=== PATIENT | male | born 1960 | race Caucasian/White ===

== ENCOUNTER 2017-12-01 08:16 | Outpatient (REF) | payer BC, SELFPAY ==
[2017-12-01 13:21] LABS: Anion Gap 8.4 mmol/L (3-11); BUN 15 mg/dL (7-18); CO2 27.6 mmol/L (21.0-32.0); CREATININE 0.93 mg/dL (0.70-1.30); Chloride 103 mmol/L (98-107); Cholesterol 176 mg/dL (50-200); Glucose 95 mg/dL (70-100); HDL Cholesterol 48 mg/dL (40-60); LDL CHOLESTEROL 108 mg/dL (<100); Potassium 3.9 mmol/L (3.5-5.1); Sodium 139 mmol/L (136-145); Triglyceride 180 mg/dL (30-150)
[2017-12-02 10:08] LABS: Hepatitis C Ab w Rflx HCV PCR Negative (NEGAT)
== END 2017-12-01 08:36 ==
LOC: NCHCN 08:16
PROVIDERS: PCP Family Medicine; Visit Provider Family Medicine
DX: Z00.00 Encounter for general adult medical examination without abnormal findings (principal); I10 Essential (primary) hypertension; Z11.59 Encounter for screening for other viral diseases
CPT/HCPCS: 80048; 80061; 83721; 86803

== ENCOUNTER 2019-02-16 20:44 | Emergency (ER) | payer BC, SELFPAY ==
[2019-02-16 20:49] VITALS: BP 164/84; PULSE 87; TEMP 37.2; O2SAT 96
--- NOTE | 2019-02-16 20:52 | W.ED.GENAD ---
Discharge Plan Disposition Patient Disposition: HOME Discharge Details Chief Complaint: RashLesion Clinical Impression: Rash, Contact dermatitis Primary Care Provider: Sandip Vincent ED Provider: Freddy Cruz Home Meds and New Rx's Prescriptions: No Action chlorthalidone 25 MG tablet 25 mg PO DAILY RF: 0 zinc 50 MG tablet 50 mg PO DAILY RF: 0 multivitamin 1 EACH capsule 1 tab PO DAILY RF: 0 itlqmwzomzr-kpxresizy-dxw C-Mn 1 EACH capsule 1 tab PO DAILY RF: 0 Discharge Instructions Instructions: Dermatitis (ED) Additional Instructions: At this time the rash in your leg appears to be contact dermatitis. Please apply the cream 3 times daily. Do not put any adhesive on it. Try to keep it open, or covered with a nonadhesive gauze. If you notice spreading of the redness, warmth, firmness, please return immediately. If you notice any worsening of your symptoms, or any new symptoms such as vomiting, diarrhea, fever, chills, shortness of breath, chest pain, numbness, weakness, or fainting , please return immediately to the emergency department for reevaluation. Please follow up with your primary care provider as soon as possible for reassessment and reevaluation. As always, it was a pleasure participating in your medical care today. Referrals: Sandip Vincent [Primary Care Provider] - Medical Decision Making This is a pleasant 4-year-old male who presents for a mild rash on his right calf. It started as a small scrape, he subsequently put a Band-Aid on it, after leaving the Band-Aid on for around a week he noticed a significant red rash underneath with a Band-Aid was. Is mild cobblestoning, no vesicles, no evidence of cellulitis, no evidence of associated oral lesions, no history of significant allergic reaction. No red flags of fever or chills. Signs and symptoms are clinically inconsistent with cellulitis. This time they are clinically consistent with contact dermatitis. We will prescribe a hydrocortisone 2.5% ointment, recommend application 3 times daily, we circled the lesion, and recommend close follow-up. Discussed red flags which return. We will give the medication here in the ED for him to take home, given that it is the evening, the weekend, and the holiday season. I have extensively reviewed the treatment plan and discharge instructions with the patient and their family. I have addressed all patient concerns at this time. The patient and family was made aware of what symptoms to monitor for that would warrant a return to the emergency department. Discussed the plan with the patient and family, they demonstrate verbal understanding and agreement with our assessment and plan at this time. HPI General Date/Time Provider Initiated Documentation: 02/16/19 20:45. HPI Narrative: This is a pleasant 58-year-old male with no significant past medical history who presents today for evaluation of rash on his right calf. Rashes been present for the last 5 days. It started with a small abrasion, he placed a Band-Aid on it, with neomycin cream, and since Band-Aid application he remove the bandage today for the first time and noticed a significant rash under where the bandage was. He describes it is notably itchy. He denies fever, chills, antiepileptic medication, new medication change, oral symptoms, dysuria or other complaints. He he states that he has had a mild reaction like this in the past. He denies any red flags of fever or chills. He has no other complaints at this time. No other modifying factors. Related Data Home Medications Medication Instructions Recorded Confirmed chlorthalidone 25 mg PO DAILY tab-cap 01/16/15 02/16/19 hkvoblicrss-bvkhfdnnn-rbo C-Mn 1 tab PO DAILY 04/11/15 02/16/19 multivitamin 1 tab PO DAILY 04/11/15 02/16/19 zinc 50 mg PO DAILY 04/11/15 02/16/19 Allergies Allergy/AdvReac Type Severity Reaction Status Date / Time No Known Allergies Allergy Unverified 02/16/19 20:52 General Stated Complaint: RashLesion MARIAN: 4 Review of Systems All systems reviewed & are unremarkable except as noted in HPI and below [facility] Medical History (Updated 04/11/15 @ 07:24 by Paresh Fountain DO) Erectile dysfunction Hypertension, essential Surgical History (Updated 01/11/18 @ 14:36 by [employer] AR) Colonoscopy - MAC Tonsillectomy and adenoidectomy Family History Father Personal history of malignant neoplasm colon cancer, diagnosed at 80 Social History Smoking/Tobacco Use Status: Current-Occasional Tobacco Type: cigars Alcohol Intake: current Alcohol Intake frequency: a few times a month Drug use: Never Substance use type: does not use Do you feel safe at home: Yes Do you feel safe in your relationship?: Yes Exam Narrative Exam Narrative: 1.Const: Well-nourished, Well-developed, appearing stated age 2.Eyes: PERRL, no conjunctival injection, and symmetrical lids. 3.ENT: Atraumatic external nose and ears. Moist MM. Neck: Symmetric, trachea midline, No thyromegaly. 4.CVS: +S1/S2, No murmurs or gallops. Peripheral pulses 2+ and equal in all extremities. Brisk capillary refill in all extremities. 5.RESP: Unlabored respiratory effort. Clear to auscultation bilaterally. No wheezes rales or rhonchi 6.GI: Soft, Nontender/Nondistended, No hepatosplenomegaly. No guarding or rebound. 7.MSK: Normocephalic/Atraumatic, Extremities w/o deformity or ttp No cyanosis or clubbing, Normal movement of all extremities 8.Skin: Patient's right calf demonstrates a small cobblestone-like rash mildly erythematous, easily blanchable. It is roughly 6 cm in length, and 4 cm in width. No weeping, no vesicles. Negative Nikolsky sign. No large vesicles or bulla. No palpable purpura. No oral lesions. No mucosal lesions. No evidence of severe cellulitis. No evidence of vaccine preventable rash. 9.Neuro: gopherman II-XII grossly intact. Sensation grossly intact, no focal neurologic deficits. 10.Psych: (AAO) x3. Appropriate mood and affect Course Vital Signs Vital signs: Vital Signs Temperature 37.2 C 02/16/19 20:49 Pulse 87 02/16/19 20:49 Blood Pressure 164/84 H 02/16/19 20:49 Pulse Oximetry 96 02/16/19 20:49 Temperature 37.2 C 02/16/19 20:49 Temperature Source Skin 02/16/19 20:49 Pulse 87 02/16/19 20:49 Blood Pressure 164/84 H 02/16/19 20:49 Blood Pressure Position Sitting 02/16/19 20:49 Pulse Oximetry 96 02/16/19 20:49 Oxygen Delivery Method Room Air 02/16/19 20:49 Oxygen Flow Rate 0 02/16/19 20:49 Comment 02/16/19 20:49
== END 2019-02-16 21:00 | disposition home or self-care (01) ==
PROVIDERS: Emergency Provider Student in an Organized Health Care Education/Training Program; PCP Family Medicine
DX: L25.9 Unspecified contact dermatitis, unspecified cause (principal)
CPT/HCPCS: 99283

== ENCOUNTER 2019-04-26 12:48 | Outpatient (REF) | payer BC, SELFPAY ==
[2019-04-26 14:42] LABS: Anion Gap 10.1 mmol/L (3-11); BUN 19 mg/dL (7-18); CO2 25.9 mmol/L (21.0-32.0); CREATININE 0.78 mg/dL (0.70-1.30); Calcium 9.4 mg/dL (8.5-10.1); Chloride 100 mmol/L (98-107); Glucose 89 mg/dL (74-106); Potassium 4.3 mmol/L (3.5-5.1); Sodium 136 mmol/L (136-145)
[2019-04-27 09:16] LABS: PSA, Screening 0.4 ng/mL (0.0-4.5)
== END 2019-04-26 13:08 ==
LOC: NCHCN 12:48
PROVIDERS: PCP Family Medicine; Visit Provider Family Medicine
DX: Z00.00 Encounter for general adult medical examination without abnormal findings (principal); I10 Essential (primary) hypertension; Z12.5 Encounter for screening for malignant neoplasm of prostate
CPT/HCPCS: 80048; 84153

== ENCOUNTER 2019-09-03 17:09 | Outpatient (REF) | payer BC, SELFPAY ==
[2019-09-04 03:02] LABS: COVID-19 RT-PCR UVMMC Result Negative (Negative)
== END 2019-09-03 17:29 ==
LOC: NCHCN 17:09
PROVIDERS: PCP Family Medicine; Visit Provider Nurse Practitioner Family
DX: J06.9 Acute upper respiratory infection, unspecified (principal)
CPT/HCPCS: U0003

== ENCOUNTER 2020-12-31 17:15 | Outpatient (REF) | payer OTHER, SELFPAY ==
[2020-12-31 22:24] LABS: HCT 44.3 % (40.0-50.0); HGB 14.6 g/dL (13.5-17.5); MCH 29.7 pg (27.0-33.0); MPV 9.5 fL (8.0-11.0); Platelet Count 289 10^3/uL (130-400); RBC 4.92 10^6/uL (4.36-5.78); RDW-SD 39.7 fL
[2021-01-01 06:55] LABS: ALT 40 U/L (16-63); AST 24 U/L (15-37); Albumin 4.5 g/dL (3.4-5.0); Alkaline Phosphatase 63 U/L (46-116); Anion Gap 8.9 mmol/L (3-11); BUN 12 mg/dL (7-18); Bilirubin, Total 0.8 mg/dL (0.2-1.0); CO2 29.1 mmol/L (21.0-32.0); Calcium 9.4 mg/dL (8.5-10.1); Chloride 101 mmol/L (98-107); Glucose 92 mg/dL (74-106); Potassium 4.3 mmol/L (3.5-5.1); Sodium 139 mmol/L (136-145); Total Protein 7.7 g/dL (6.4-8.2)
[2021-01-01 19:41] LABS: PSA, Screening 0.4 ng/mL (0.0-4.5)
== END 2021-01-01 07:35 | disposition home or self-care (01) ==
LOC: NCHCN 17:15
PROVIDERS: PCP Family Medicine; Visit Provider Family Medicine
DX: I10 Essential (primary) hypertension (principal); F10.99 Alcohol use, unspecified with unspecified alcohol-induced disorder; R39.9 Unspecified symptoms and signs involving the genitourinary system; Z00.00 Encounter for general adult medical examination without abnormal findings
CPT/HCPCS: 80053; 84153; 85027

== ENCOUNTER 2021-01-30 08:36 | Outpatient (REF) | payer OTHER, SELFPAY ==
[2021-02-02 14:58] LABS: Pancreatic Elastase, F >500 mcg/g
== END 2021-01-30 08:37 | disposition home or self-care (01) ==
LOC: NCHCN 08:36
PROVIDERS: PCP Family Medicine; Visit Provider Family Medicine
DX: F10.99 Alcohol use, unspecified with unspecified alcohol-induced disorder (principal)
CPT/HCPCS: 82656

== ENCOUNTER 2021-05-28 16:35 | Outpatient (REF) | payer OTHER, SELFPAY ==
[2021-05-28 15:11] LABS: Crystals (BF) No Crystals seen
[2021-05-28 15:12] LABS: Clarity Clear; Nucleated Cells 4115 uL (0)
[2021-05-28 15:19] LABS: Mononuclear Cells 52 %; Polynuclear Cells 48 %
== END 2021-05-28 16:36 | disposition home or self-care (01) ==
LOC: LBN 16:35
PROVIDERS: PCP Family Medicine; Visit Provider Physician Assistant Medical
DX: M25.462 Effusion, left knee (principal)
CPT/HCPCS: 87070; 87205; 89051; 89060

== ENCOUNTER 2022-02-15 18:38 | Outpatient (REF) | payer OTHER, SELFPAY ==
[2022-02-15 20:34] LABS: Anion Gap 8.3 mmol/L (3-11); BUN 12 mg/dL (7-18); CO2 28.7 mmol/L (21.0-32.0); CREATININE 0.9 mg/dL (0.70-1.30); Calcium 9.4 mg/dL (8.5-10.1); Calculated LDL 94 mg/dL (<100); Chloride 100 mmol/L (98-107); Cholesterol 211 mg/dL (<200); Estimated GFR 95.97 (mL/min/1.73m2); Glucose 89 mg/dL (74-106); HDL Cholesterol 68 mg/dL (40-60); Potassium 3.8 mmol/L (3.5-5.1); Sodium 137 mmol/L (136-145); Triglyceride 247 mg/dL (<150)
== END 2022-02-15 18:39 | disposition home or self-care (01) ==
LOC: NCHCN 18:38
PROVIDERS: PCP Family Medicine; Visit Provider Family Medicine
DX: Z00.00 Encounter for general adult medical examination without abnormal findings (principal); I10 Essential (primary) hypertension; Z13.220 Encounter for screening for lipoid disorders
CPT/HCPCS: 80048; 80061

== ENCOUNTER 2023-02-21 21:04 | Outpatient (REF) | payer BC, SELFPAY ==
[2023-02-21 19:08] LABS: Calculated LDL 70 mg/dL (<100); Cholesterol 165 mg/dL (<200); HDL Cholesterol 59 mg/dL (40-60); Triglyceride 184 mg/dL (<150)
[2023-02-23 11:55] LABS: HIV-1/2 Ag & Ab Screen Negative (Negative)
== END 2023-02-21 21:05 | disposition home or self-care (01) ==
LOC: NCHCN 21:04
PROVIDERS: PCP Family Medicine; Visit Provider Family Medicine
DX: Z00.00 Encounter for general adult medical examination without abnormal findings (principal)
CPT/HCPCS: 80061; 87389

== ENCOUNTER 2023-10-05 17:02 | Outpatient (REF) | payer MEDICARE, SELFPAY ==
[2023-10-05 20:27] LABS: ALT 40 U/L (16-63); AST 24 U/L (15-37); Albumin 4.2 g/dL (3.4-5.0); Alkaline Phosphatase 58 U/L (46-116); Anion Gap 8.8 mmol/L (3-11); BUN 13 mg/dL (7-18); Bilirubin, Total 1.14 mg/dL (0.2-1.0); CO2 26.2 mmol/L (21.0-32.0); CREATININE 0.9 mg/dL (0.70-1.30); Calcium 9.4 mg/dL (8.5-10.1); Chloride 102 mmol/L (98-107); Estimated GFR 94.78 (mL/min/1.73m2); Glucose 94 mg/dL (74-106); Potassium 3.9 mmol/L (3.5-5.1); Sodium 137 mmol/L (136-145); Total Protein 7.5 g/dL (6.4-8.2)
== END 2023-10-05 17:03 | disposition home or self-care (01) ==
LOC: NCHCN 17:02
PROVIDERS: PCP Family Medicine; Visit Provider Nurse Practitioner Family
DX: I10 Essential (primary) hypertension (principal)
CPT/HCPCS: 80053

== ENCOUNTER 2024-04-19 17:43 | Outpatient (REF) | payer MEDICARE, OTHER, SELFPAY ==
[2024-04-19 18:56] LABS: HGB 14.4 g/dL (13.5-17.5); MCHC 34.3 % (32.0-36.0); MCV 88 fL (80-95); MPV 9.8 fL (8.0-11.0); Platelet Count 261 10^3/uL (130-400); RDW 11.8 % (11.8-14.1); RDW-SD 37.5 fL; WBC 9.59 10^3/uL (4.4-10.8)
[2024-04-19 19:19] LABS: ALT 52 U/L (16-63); AST 29 U/L (15-37); Albumin 3.8 g/dL (3.4-5.0); Alkaline Phosphatase 61 U/L (46-116); BUN 17 mg/dL (7-18); Bilirubin, Total 0.74 mg/dL (0.2-1.0); CREATININE 0.9 mg/dL (0.70-1.30); Calcium 9.2 mg/dL (8.5-10.1); Chloride 105 mmol/L (98-107); Estimated GFR 94.78 (mL/min/1.73m2); Glucose 89 mg/dL (74-106); Magnesium 1.9 mg/dL (1.8-2.4); Potassium 4.1 mmol/L (3.5-5.1); Sodium 143 mmol/L (136-145); TSH 1.02 uIU/mL (0.36-3.74); Total Protein 6.8 g/dL (6.4-8.2)
[2024-04-19 19:30] LABS: Hemoglobin A1C 5.2 % (<5.7)
[2024-04-20 19:01] LABS: PSA, Screening 0.8 ng/mL (<=4.5)
== END 2024-04-19 17:44 | disposition home or self-care (01) ==
LOC: NCHCN 17:43
PROVIDERS: PCP Family Medicine; Visit Provider Nurse Practitioner Family
DX: Z12.5 Encounter for screening for malignant neoplasm of prostate (principal); R63.5 Abnormal weight gain
CPT/HCPCS: 80053; 84153; 85027; 83036; 83735; 84443